=== PATIENT | female | born 1945 | race Caucasian/White ===

== ENCOUNTER → 2023-03-08 10:44 | Outpatient (REF) | payer MEDICARE, SELFPAY ==
--- NOTE | 2023-03-08 10:51 | CA_ITS ---
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 The visually estimated ejection fraction is >70%. - No obvious valvular pathology seen on this study. Findings Left Ventricle Normal left ventricular cavity size. There is normal left ventricular wall thickness. The left ventricular systolic function is hyperdynamic. The visually estimated ejection fraction is >70%. There is no evidence of regional wall motion abnormalities. Evidence suggests grade I (mild) diastolic dysfunction. Right Ventricle Normal right ventricular cavity size and systolic function. Atria Both atria are normal in size. Aortic Valve There is a normal trileaflet aortic valve. There is no aortic valve stenosis. There is no aortic valve regurgitation. Mitral Valve The mitral valve appears normal. There is trace mitral valve regurgitation. There is no mitral valve stenosis. Pulmonic Valve The pulmonic valve is likely normal. Tricuspid Valve Normal tricuspid valve structure. There is trace tricuspid valve regurgitation. There is no evidence of pulmonary hypertension. Great Vessels The asc aorta is normal in size. Venous The inferior vena cava is normal in size and collapses greater than 50% with inspiration. Pericardium/Pleural There is no evidence of pericardial effusion. Prior Study Comparison No prior study available for comparison. Recommendations, Care & Conclusions No obvious valvular pathology seen on this study. Measurements 2D Linear Measurements IVSd: 1.00 0.6-0.9/0.6-1.0 cm LVIDd: 3.95 3.9-5.3/4.2-5.9 cm LVIDd Index: 2.58 2.4-3.2/2.2-3.1 cm/m2 LVIDs: 2.75 2.0-3.6 cm LVPWd: 1.06 0.7-1.1 cm Ao Root: 3.00 2.1-3.5 cm LA Diam: 2.80 2.7-3.8/3.0-4.0 cm LAIDs Index: 1.83 1.5-2.3 cm/m2 LV Mass: 161.44 67-162/88-224 g LV Mass Index: 105.52 43-95/49-115 g/m2 LVOT Diam: 1.80 3.0+(-)1.3 cm 2D Systolic Function EF 4C: 69.10 >55% EF 2C: 80.60 >55% EF BiP: 76.00 >55% Mitral Valve MV Pk E: 0.93 MV PK A: 1.10 MV Decel Time: 141.00 E/A: 0.80 E'Lateral: 5.22 E'Medial: 5.98 E/E' Med: 15.50 E/E' Lat: 17.70 PHT: 41.00 MVA PHT: 5.37 Decel [place]: 6.58 Aortic Valve AoV Pk Harsh: 1.57 AoV Mn Harsh: 1.18 AoV VTI: 0.35 AoV Pk Grad: 10.00 Aov Mn Grad: 6.00 REBA Cont.VTI: 2.01 LVOT LVOT Pk Harsh: 1.50 LVOT Mn Harsh: 0.90 LVOT VTI: 0.28 LVOT Pk Grad: 9.00 LVOT Mn Grad: 4.00 LVOT Diam: 1.80 LVOT Area: 2.54 Diastolic Function MV Pk E: 0.93 MV Pk A: 1.10 E/A: 0.80 E'Medial: 5.98 E/E' Med: 15.50 E' Laterial: 5.22 E/E' Lat: 17.70 Right Ventricle TAPSE (mm): 17.00 TVS' Harsh: 12.00 Tricuspid Valve TR Pk Harsh: 1.69 TR Pk Grad: 11.00 RA Press: 3.00 RVSP: 14.00 Great Vessels Aorta Ao Root-2D: 3.00 2.0-3.7 cm Ao Asc: 2.40 2.1-3.4 cm Pulmonary Valve PV Pk Harhs: 1.03 Peak PV Grad: 4.00 Updated in Other Vendor System with Status of Final Tavo Jeronimo MD electronically signed on 03/09/2023 8:57:21 AM with status of Final
== END ==
LOC: HO.CARD 10:44
PROVIDERS: PCP Internal Medicine; Visit Provider Internal Medicine Cardiovascular Disease
DX: Z01.810 Encounter for preprocedural cardiovascular examination (principal)
CPT/HCPCS: 93306

== ENCOUNTER → 2023-03-08 10:51 | Outpatient (BNV) | payer MEDICARE, SELFPAY | PROVIDERS: PCP Internal Medicine; Visit Provider Internal Medicine | DX: I51.9 Heart disease, unspecified (principal); Z01.810 Encounter for preprocedural cardiovascular examination | CPT/HCPCS: 93306 ==